=== PATIENT | male | born 1945 | race Caucasian/White ===

== ENCOUNTER → 2017-04-18 | Outpatient (CLI) | payer MEDICARE, MEDICAID ==
[~2017-04-18] MED LIST: AMLO5TAB2 PO; COLC0.6T PO; DIGO0.2570 PO; GABA-497 PO; LINA1TAB PO; LISI40TA PO; METO100T12 PO; SIMV10TA84 PO; TRIA25CA PO; WARF1TAB PO
== END | disposition home or self-care (01) ==
LOC: Rad HDHVI 13:55
PROVIDERS: ATTEND Internal Medicine Cardiovascular Disease
DX: I48.1 Persistent atrial fibrillation (principal); I49.5 Sick sinus syndrome
CPT/HCPCS: 93306

== ENCOUNTER 2017-11-09 05:08 | Emergency (ER) | payer MEDICARE, MEDICAID ==
[~2017-11-09] VITALS: Ht 182.9 cm; Wt 127.0 kg
[~2017-11-09 05:08] MED LIST changes: -GABA-497 PO; +GABA300C10 PO
[2017-11-09 06:37] LABS: Basophils # (auto) 0.1 uL; Basophils % (auto) 1.1 % (0.0-2.0); Eosinophils # (auto) 0.4 uL; Eosinophils % (auto) 6.1 % (0.0-7.0); Hematocrit 39.3 % (41.0-53.0); Hemoglobin 13.1 g/dL (13.5-17.5); Lymphocytes # (auto) 1.5 uL; Lymphocytes % (auto) 25.7 % (10.0-50.0); Mean Corpuscular Hemoglobin 28.1 pg (28.0-32.0); Mean Corpuscular Hgb Conc. 33.4 g/dL (32.0-36.0); Mean Corpuscular Volume 84.2 fL (80.0-100.0); Monocytes # (auto) 0.4 uL; Monocytes % (auto) 7.6 % (0.0-12.0); Neutrophils # (auto) 3.4 uL; Neutrophils % (auto) 59.5 % (37.0-80.0); Nucleated Red Blood Cells % 0.1 %; Platelet Count (auto) 158 10^3/uL (140-450); Red Blood Cells 4.67 10^6/uL (4.5-5.90); Red Cell Distribution Width 15.7 % (11.8-14.3); White Blood Cell 5.7 10^3/uL (4.4-10.8)
[2017-11-09 06:57] LABS: Albumin 3.9 g/dL (3.4-5.0); BUN/Creatinine Ratio 14.5; Calcium 8.6 mg/dL (8.5-10.1); Potassium 3.8 mmol/L (3.5-5.1)
[2017-11-09 07:04] LABS: Bilirubin, Total 0.9 mg/dL (0.2-1.0); Total Protein 7.3 g/dL (6.4-8.2)
[2017-11-09 10:30] VITALS: BP 139/66
== END 2017-11-09 13:21 | disposition home or self-care (01) ==
LOC: ER 05:08
DX: M54.12 Radiculopathy, cervical region (principal); R00.1 Bradycardia, unspecified; E11.9 Type 2 diabetes mellitus without complications; I10 Essential (primary) hypertension; M10.9 Gout, unspecified; E78.5 Hyperlipidemia, unspecified; I48.91 Unspecified atrial fibrillation; Z88.6 Allergy status to analgesic agent; Z88.0 Allergy status to penicillin; Z79.01 Long term (current) use of anticoagulants
CPT/HCPCS: 36415; 70450; 72125; 80053; 80162; 83880; 84484; 85025; 93005

== ENCOUNTER → 2017-12-15 | Outpatient (CLI) | payer MEDICARE, MEDICAID ==
[2017-12-15 11:00] VITALS: BP 166/74
[2017-12-15 11:35] VITALS: BP 156/78
[2017-12-15 12:58] LABS: Basophils # (auto) 0 uL; Basophils % (auto) 0.8 % (0.0-2.0); Eosinophils # (auto) 0.4 uL; Eosinophils % (auto) 7.1 % (0.0-7.0); Hematocrit 38.6 % (41.0-53.0); Hemoglobin 12.7 g/dL (13.5-17.5); Lymphocytes # (auto) 1.1 uL; Lymphocytes % (auto) 19.2 % (10.0-50.0); Mean Corpuscular Hemoglobin 27.6 pg (28.0-32.0); Mean Corpuscular Hgb Conc. 32.9 g/dL (32.0-36.0); Mean Corpuscular Volume 83.9 fL (80.0-100.0); Monocytes # (auto) 0.3 uL; Monocytes % (auto) 5.8 % (0.0-12.0); Neutrophils % (auto) 67.1 % (37.0-80.0); Nucleated Red Blood Cells % 0.1 %; Platelet Count (auto) 149 10^3/uL (140-450); Red Cell Distribution Width 16.3 % (11.8-14.3)
[2017-12-15 13:02] LABS: BUN/Creatinine Ratio 7.4; Calcium 8.8 mg/dL (8.5-10.1)
[2017-12-15 13:09] LABS: INR 1.28 (0.9-1.15); Partial Thromboplastin Time 28.5 sec (22.64-33.71)
== END | disposition home or self-care (01) ==
LOC: Rad HDHVI 10:03
PROVIDERS: ATTEND Internal Medicine Cardiovascular Disease
DX: Z01.818 Encounter for other preprocedural examination (principal); I51.7 Cardiomegaly; D64.9 Anemia, unspecified; R79.1 Abnormal coagulation profile; I10 Essential (primary) hypertension
CPT/HCPCS: 36415; 71046; 80048; 85025; 85610; 85730; 93005; G0463

== ENCOUNTER 2018-01-14 10:27 | Inpatient (IN) | payer MEDICARE, MEDICAID ==
[~2018-01-14] VITALS: Ht 185.4 cm; Wt 127.4 kg
[~2018-01-14 10:27] MED LIST changes: -LINA1TAB PO
[2018-01-14 11:35] LABS: Basophils # (auto) 0 uL; Basophils % (auto) 0.7 % (0.0-2.0); Eosinophils # (auto) 0.2 uL; Eosinophils % (auto) 3.3 % (0.0-7.0); Hematocrit 35.2 % (41.0-53.0); Hemoglobin 11.6 g/dL (13.5-17.5); Lymphocytes # (auto) 0.8 uL; Lymphocytes % (auto) 16.2 % (10.0-50.0); Mean Corpuscular Hemoglobin 27.6 pg (28.0-32.0); Mean Corpuscular Hgb Conc. 32.9 g/dL (32.0-36.0); Mean Corpuscular Volume 83.7 fL (80.0-100.0); Monocytes # (auto) 0.2 uL; Neutrophils # (auto) 3.6 uL; Neutrophils % (auto) 74.8 % (37.0-80.0); Nucleated Red Blood Cells % 0.1 %; Platelet Count (auto) 170 10^3/uL (140-450); Red Blood Cells 4.21 10^6/uL (4.5-5.90); Red Cell Distribution Width 16.5 % (11.8-14.3); White Blood Cell 4.8 10^3/uL (4.4-10.8)
[2018-01-14 11:44] LABS: Albumin 3.9 g/dL (3.4-5.0); Calcium 9.2 mg/dL (8.5-10.1); Magnesium 1.8 mg/dL (1.6-2.6); Potassium 3.8 mmol/L (3.5-5.1)
[2018-01-14 11:51] LABS: Bilirubin, Total 2.1 mg/dL (0.2-1.0); Total Protein 7.5 g/dL (6.4-8.2)
[2018-01-14] MEDS ORDERED: LINA1TAB PO (12:01)
[2018-01-14] MEDS ORDERED: INSU100I2 SC (12:01)
[2018-01-14] MEDS ORDERED: METO-159 PO (12:01)
[2018-01-14] MEDS ORDERED: INSLANTI SC (12:01)
[2018-01-14] MEDS ORDERED: ASPirin 81 mg TAB PO ONE (12:45)
[2018-01-14 13:32] LABS: INR 2.65 (0.9-1.15); Partial Thromboplastin Time 37.6 sec (22.64-33.71); Prothrombin Time 29.2 sec (9.37-12.3)
[2018-01-14] MEDS ORDERED: LORazepam 0.5 MG TAB PO PRN (15:00)
[2018-01-14] MEDS ORDERED: PROMETHAZINE HCL 25 MG/ML 1ML IV PRN (15:00)
[2018-01-14] MEDS ORDERED: NITROGLYCERIN 0.4 MG SL TAB SL PRN (15:00)
[2018-01-14] MEDS ORDERED: TEMAZEPAM 15 MG CAP PO PRN (15:00)
[2018-01-14] MEDS ORDERED: DEXTROSE (50%) 50ML SYRG IV PRN (15:00)
[2018-01-14] MEDS ORDERED: MORPHINE SULFATE 8mg/ml INJ SDV IV PRN ×2 (15:00)
[2018-01-14] MEDS ORDERED: LACTULOSE 20Gm/30ML SOLN PO PRN (15:00)
[2018-01-14] MEDS ORDERED: ACETAMINOPHEN 500 MG TAB PO PRN (15:00)
[2018-01-14] MEDS: SODIUM CHLORIDE 0.9% 1,000 ML IV SCH (15:30)
[2018-01-14] MEDS: ACCU-CHEK COMFORT CURVE STRIP VI SCH ×2 (17:03→21:41)
[2018-01-14] MEDS: InsuLIN REG 1unit/0.01ml Soln (100units/ml) SC SCH ×2 (17:06→21:44)
[2018-01-14] MEDS: PRAVASTATIN SODIUM 20 MG TAB PO SCH (21:38)
[2018-01-14] MEDS: METOPROLOL TARTRATE 50 MG TAB PO SCH (21:38)
[2018-01-14] MEDS: COLCHICINE 0.6 MG TAB PO SCH (21:38)
[2018-01-14] MEDS: INSULIN LANTUS (GLARGINE) 1 /0.01ml (100units/ml) SC SCH (21:41)
[2018-01-14 22:05] LABS: Urine Bacteria NONE SEEN /hpf (None Seen); Urine Blood Negative /uL (Negative); Urine Mucus FEW (None Seen); Urine WBC 1 /hpf (0 - 3)
[2018-01-15 01:46] VITALS: BP 149/73
[2018-01-15] MEDS: SODIUM CHLORIDE 0.9% 1,000 ML IV SCH ×2 (04:09→17:29)
[2018-01-15 05:14] VITALS: BP 135/75
[2018-01-15 06:01] LABS: INR 2.84 (0.9-1.15); Prothrombin Time 31.3 sec (9.37-12.3)
[2018-01-15 06:10] LABS: Basophils # (auto) 0.1 uL; Basophils % (auto) 1.2 % (0.0-2.0); Eosinophils # (auto) 0.2 uL; Hematocrit 33.4 % (41.0-53.0); Hemoglobin 11.1 g/dL (13.5-17.5); Lymphocytes # (auto) 0.9 uL; Lymphocytes % (auto) 22.1 % (10.0-50.0); Mean Corpuscular Hemoglobin 28.2 pg (28.0-32.0); Mean Corpuscular Hgb Conc. 33.3 g/dL (32.0-36.0); Mean Corpuscular Volume 84.5 fL (80.0-100.0); Monocytes # (auto) 0.3 uL; Monocytes % (auto) 6.7 % (0.0-12.0); Neutrophils # (auto) 2.8 uL; Nucleated Red Blood Cells % 0.3 %; Platelet Count (auto) 149 10^3/uL (140-450); Red Blood Cells 3.95 10^6/uL (4.5-5.90); Red Cell Distribution Width 16.6 % (11.8-14.3); White Blood Cell 4.2 10^3/uL (4.4-10.8)
[2018-01-15] MEDS: InsuLIN REG 1unit/0.01ml Soln (100units/ml) SC SCH ×4 (06:16→21:59)
[2018-01-15] MEDS: ACCU-CHEK COMFORT CURVE STRIP VI SCH ×4 (06:16→21:59)
[2018-01-15 06:33] LABS: Cholesterol 101 mg/dL (< 200); HDL Cholesterol 20 mg/dL (40-59); LDL Cholesterol 69 mg/dL (< 100); Triglycerides 194 mg/dL (< 150)
[2018-01-15 08:53] VITALS: BP 162/97
[2018-01-15] MEDS: COLCHICINE 0.6 MG TAB PO SCH ×2 (10:08→21:58)
[2018-01-15] MEDS: TRIAMTERENE/HCTZ 37.5/25 MG CAP PO SCH (10:09)
[2018-01-15] MEDS: METOPROLOL TARTRATE 50 MG TAB PO SCH ×2 (10:09→21:58)
[2018-01-15] MEDS: NITROGLYCERIN 0.2MG/HR TOPICAL PATCH TD SCH (10:09)
[2018-01-15] MEDS: LISINOPRIL 20 MG TAB PO SCH ×2 (10:10→21:58)
[2018-01-15] MEDS: amLODIPine BESYLATE 5 MG TAB PO SCH (10:10)
[2018-01-15] MEDS: ASPirin 81 mg TAB PO SCH (10:11)
[2018-01-15] MEDS: PANTOPRAZOLE 40 MG TAB PO SCH (10:11)
[2018-01-15] MEDS: DIGOXIN 0.25 MG TAB PO SCH (10:11)
[2018-01-15] MEDS: INSULIN LANTUS (GLARGINE) 1 /0.01ml (100units/ml) SC SCH ×2 (11:35→21:59)
[2018-01-15 12:39] VITALS: BP 141/88
[2018-01-15 16:57] VITALS: BP 162/86
[2018-01-15] MEDS ORDERED: WARFARIN SODIUM 2 MG TAB PO ONE (17:00)
[2018-01-15] MEDS: PRAVASTATIN SODIUM 20 MG TAB PO SCH (21:58)
[2018-01-15 22:00] VITALS: BP 170/78
[2018-01-16 05:00] VITALS: BP 160/86
[2018-01-16 06:07] LABS: INR 2.14 (0.9-1.15); Partial Thromboplastin Time 34.9 sec (22.64-33.71); Prothrombin Time 23.5 sec (9.37-12.3)
[2018-01-16] MEDS: InsuLIN REG 1unit/0.01ml Soln (100units/ml) SC SCH ×4 (06:30→22:20)
[2018-01-16] MEDS: SODIUM CHLORIDE 0.9% 1,000 ML IV SCH ×2 (06:30→22:17)
[2018-01-16] MEDS: ACCU-CHEK COMFORT CURVE STRIP VI SCH ×4 (06:30→22:21)
[2018-01-16] MEDS: METOPROLOL TARTRATE 50 MG TAB PO SCH ×2 (07:55→22:19)
[2018-01-16] MEDS: amLODIPine BESYLATE 5 MG TAB PO SCH (07:56)
[2018-01-16] MEDS: LISINOPRIL 20 MG TAB PO SCH ×2 (07:56→22:20)
[2018-01-16 08:00] VITALS: BP 160/86
[2018-01-16] MEDS ORDERED: IODIXANOL 320MG/ML 100ML BTL IV ONE (08:46)
[2018-01-16] MEDS ORDERED: LIDOCAINE 2%HCL (LOCAL ANESTH.) INJ 20ML MDV ONE (08:47)
[2018-01-16] MEDS ORDERED: fentaNYL CITRATE 100 MCG/2 ML VL ONE (09:24)
[2018-01-16] MEDS ORDERED: ANGIOMAX 250 MG VIAL IV ONE (09:24)
[2018-01-16] MEDS ORDERED: SODIUM CHL 0.9% 50 ML ONE (09:25)
[2018-01-16] MEDS ORDERED: MIDAZOLAM HCL 1MG/1ML-2 ML VIAL ONE (09:25)
[2018-01-16] MEDS ORDERED: TICAGRELOR 90 MG TAB ONE (09:53)
[2018-01-16] MEDS: DIGOXIN 0.25 MG TAB PO SCH (11:11)
[2018-01-16] MEDS: TRIAMTERENE/HCTZ 37.5/25 MG CAP PO SCH (11:12)
[2018-01-16] MEDS: NITROGLYCERIN 0.2MG/HR TOPICAL PATCH TD SCH (11:12)
[2018-01-16] MEDS: ASPirin 81 mg TAB PO SCH (11:13)
[2018-01-16] MEDS: PANTOPRAZOLE 40 MG TAB PO SCH (11:13)
[2018-01-16] MEDS: COLCHICINE 0.6 MG TAB PO SCH ×2 (11:13→22:18)
[2018-01-16] MEDS: INSULIN LANTUS (GLARGINE) 1 /0.01ml (100units/ml) SC SCH ×2 (11:14→22:21)
[2018-01-16] MEDS: SODIUM CHLOR 0.9% PF (SALINE LOCK) 10ML VIAL/SYR IV SCH ×2 (12:33→22:17)
[2018-01-16 13:19] VITALS: BP 142/71
[2018-01-16] MEDS: HYDROcodone-ACET 5/325MG TAB PO PRN ×2 (16:14→22:21)
[2018-01-16 17:00] VITALS: BP 151/82
[2018-01-16] MEDS ORDERED: WARFARIN SODIUM 2 MG TAB PO ONE (17:00)
[2018-01-16 20:00] VITALS: BP_DIAS 76
[2018-01-16] MEDS: PRAVASTATIN SODIUM 20 MG TAB PO SCH (22:19)
[2018-01-17] MEDS: HYDROcodone-ACET 5/325MG TAB PO PRN (04:26)
[2018-01-17 05:56] VITALS: BP 140/86
[2018-01-17] MEDS: InsuLIN REG 1unit/0.01ml Soln (100units/ml) SC SCH ×2 (06:11→11:31)
[2018-01-17] MEDS: SODIUM CHLOR 0.9% PF (SALINE LOCK) 10ML VIAL/SYR IV SCH ×2 (06:11→11:31)
[2018-01-17] MEDS: ACCU-CHEK COMFORT CURVE STRIP VI SCH ×2 (06:12→11:30)
[2018-01-17 07:07] LABS: INR 2.02 (0.9-1.15); Partial Thromboplastin Time 33.8 sec (22.64-33.71); Prothrombin Time 22.2 sec (9.37-12.3)
[2018-01-17 07:39] VITALS: BP 144/84
[2018-01-17 08:55] VITALS: BP 144/84
[2018-01-17] MEDS: LISINOPRIL 20 MG TAB PO SCH (09:24)
[2018-01-17] MEDS: COLCHICINE 0.6 MG TAB PO SCH (09:24)
[2018-01-17] MEDS: PANTOPRAZOLE 40 MG TAB PO SCH (09:25)
[2018-01-17] MEDS: METOPROLOL TARTRATE 50 MG TAB PO SCH (09:25)
[2018-01-17] MEDS: ASPirin 81 mg TAB PO SCH (09:25)
[2018-01-17] MEDS: TRIAMTERENE/HCTZ 37.5/25 MG CAP PO SCH (09:25)
[2018-01-17] MEDS: DIGOXIN 0.25 MG TAB PO SCH (09:26)
[2018-01-17] MEDS: amLODIPine BESYLATE 5 MG TAB PO SCH (09:26)
[2018-01-17] MEDS: NITROGLYCERIN 0.2MG/HR TOPICAL PATCH TD SCH (09:27)
[2018-01-17] MEDS: INSULIN LANTUS (GLARGINE) 1 /0.01ml (100units/ml) SC SCH (09:27)
[2018-01-17] MEDS ORDERED: TICAGRELOR 60 MG TAB PO SCH (10:00)
[2018-01-17 13:00] VITALS: BP 144/77
[2018-01-17 13:04] VITALS: BP 144/77
[2018-01-17] MEDS ORDERED: WARFARIN SODIUM 5 MG TAB PO ONE (17:00)
[2018-01-17] MEDS ORDERED: WARFARIN SODIUM 2 MG TAB PO ONE (17:00)
== END 2018-01-17 13:58 | disposition home or self-care (01) | DRG 247 ==
LOC: ER 10:27 → OVERFLOW 10:28 → TELE-WESTW 23:52
PROVIDERS: ADMIT Internal Medicine; ATTEND Family Medicine
PROC: 4A023N7 Measurement of Cardiac Sampling and Pressure, Left Heart, Percutaneous Approach (ICD-10-PCS; principal; 2018-01-16)
PROC: 027034Z Dilation of Coronary Artery, One Artery with Drug-eluting Intraluminal Device, Percutaneous Approach (ICD-10-PCS; 2018-01-16)
PROC: B2111ZZ Fluoroscopy of Multiple Coronary Arteries using Low Osmolar Contrast (ICD-10-PCS; 2018-01-16)
PROC: B2151ZZ Fluoroscopy of Left Heart using Low Osmolar Contrast (ICD-10-PCS; 2018-01-16)
DX: I25.119 Atherosclerotic heart disease of native coronary artery with unspecified angina pectoris (principal); D68.59 Other primary thrombophilia; I11.0 Hypertensive heart disease with heart failure; I48.2 Chronic atrial fibrillation; E66.01 Morbid (severe) obesity due to excess calories; I50.9 Heart failure, unspecified; D64.9 Anemia, unspecified; E11.9 Type 2 diabetes mellitus without complications; E78.00 Pure hypercholesterolemia, unspecified; M10.9 Gout, unspecified; E78.5 Hyperlipidemia, unspecified; Z68.37 Body mass index [BMI] 37.0-37.9, adult; Z82.49 Family history of ischemic heart disease and other diseases of the circulatory system; Z95.0 Presence of cardiac pacemaker; Z95.5 Presence of coronary angioplasty implant and graft; Z88.0 Allergy status to penicillin
CPT/HCPCS: 36415; 71046; 80053; 80061; 81001; 82962; 83036; 83735; 83880; 84443; 84484; 85025; 85610; 85730; 86141; 86850; 86900; 86901; 93005; 94761; 96372; 99152; C1874; J1815; J2250; J2270; Q9967

== ENCOUNTER → 2018-01-26 | Outpatient (CLI) | payer MEDICARE, MEDICAID ==
[~2018-01-26] MED LIST changes: +CLOP75TA28 PO; -GABA300C10 PO; +INSLANTI SC; +INSU100I2 SC; +LINA1TAB PO; +METO-159 PO; -METO100T12 PO
== END | disposition home or self-care (01) ==
LOC: Rad HDHVI 10:24
PROVIDERS: ATTEND Internal Medicine Cardiovascular Disease
DX: I67.2 Cerebral atherosclerosis (principal); I67.82 Cerebral ischemia
CPT/HCPCS: 70450

== ENCOUNTER 2018-02-05 14:46 | Inpatient (IN) | payer MEDICARE, MEDICAID ==
[~2018-02-05] VITALS: Ht 182.9 cm; Wt 122.2 kg
[~2018-02-05 14:46] MED LIST changes: -CLOP75TA28 PO
[2018-02-05 15:43] LABS: Basophils # (auto) 0.1 uL; Basophils % (auto) 0.8 % (0.0-2.0); Eosinophils # (auto) 0.3 uL; Eosinophils % (auto) 2.9 % (0.0-7.0); Hematocrit 36.1 % (41.0-53.0); Hemoglobin 11.9 g/dL (13.5-17.5); Lymphocytes # (auto) 0.9 uL; Lymphocytes % (auto) 10.1 % (10.0-50.0); Mean Corpuscular Hemoglobin 27.6 pg (28.0-32.0); Mean Corpuscular Hgb Conc. 32.9 g/dL (32.0-36.0); Monocytes # (auto) 0.4 uL; Monocytes % (auto) 4.8 % (0.0-12.0); Neutrophils # (auto) 7.5 uL; Neutrophils % (auto) 81.4 % (37.0-80.0); Nucleated Red Blood Cells % 0.2 %; Platelet Count (auto) 213 10^3/uL (140-450); Red Blood Cells 4.29 10^6/uL (4.5-5.90); Red Cell Distribution Width 16.6 % (11.8-14.3); White Blood Cell 9.2 10^3/uL (4.4-10.8)
[2018-02-05 15:49] LABS: Albumin 3.8 g/dL (3.4-5.0); BUN/Creatinine Ratio 12.3; Calcium 9.1 mg/dL (8.5-10.1); Magnesium 1.7 mg/dL (1.6-2.6); Potassium 3.9 mmol/L (3.5-5.1)
[2018-02-05 15:50] LABS: INR 2.98 (0.9-1.15); Partial Thromboplastin Time 37.6 sec (22.64-33.71); Prothrombin Time 32.8 sec (9.37-12.3)
[2018-02-05 15:52] LABS: Bilirubin, Total 2.9 mg/dL (0.2-1.0)
[2018-02-05] MEDS ORDERED: LORazepam 2MG/ML-1ML VIAL IV ONE (16:30)
[2018-02-05] MEDS ORDERED: IOHEXOL 350 MG/ML 100ML IJ ONE (16:31)
[2018-02-05] MEDS ORDERED: ALBUTEROL SULF 2.5 MG/0.5ML(0.5%) NEB SOLN NEB PRN (18:00)
[2018-02-05] MEDS ORDERED: PROMETHAZINE HCL 25 MG/ML 1ML IV PRN (18:00)
[2018-02-05] MEDS ORDERED: TEMAZEPAM 15 MG CAP PO PRN (18:00)
[2018-02-05] MEDS ORDERED: MORPHINE SULFATE 4 MG/ML SYR/VIAL IV PRN ×2 (18:00)
[2018-02-05] MEDS ORDERED: NITROGLYCERIN 0.4 MG SL TAB SL PRN (18:00)
[2018-02-05] MEDS ORDERED: HYDROcodone-ACET 5/325MG TAB PO PRN (18:00)
[2018-02-05] MEDS ORDERED: DEXTROSE (50%) 50ML SYRG IV PRN (18:00)
[2018-02-05] MEDS ORDERED: LORazepam 0.5 MG TAB PO PRN (18:00)
[2018-02-05] MEDS ORDERED: ACETAMINOPHEN 500 MG TAB PO PRN (18:00)
[2018-02-05] MEDS ORDERED: FUROSEMIDE 40 MG/4 ML VIAL IV ONE (18:15)
[2018-02-05] MEDS ORDERED: LEVOFLOXACIN 500MG 100 ML IV ONE (18:15)
[2018-02-05] MEDS: FUROSEMIDE 40 MG/4 ML VIAL IV SCH (20:00)
[2018-02-05 20:01] VITALS: BP 163/80
[2018-02-05] MEDS ORDERED: DIGOXIN 0.25 MG TAB PO ONE (20:30)
[2018-02-05 20:50] VITALS: BP 156/77
[2018-02-05] MEDS ORDERED: MORPHINE SULFATE 8mg/ml INJ SDV IV PRN ×2 (21:00)
[2018-02-05] MEDS: POTASSIUM CHL 20 Meq TABLET PO SCH (21:33)
[2018-02-05] MEDS: COLCHICINE 0.6 MG TAB PO SCH (21:33)
[2018-02-05] MEDS: LISINOPRIL 20 MG TAB PO SCH (21:34)
[2018-02-05] MEDS: METOPROLOL TARTRATE 50 MG TAB PO SCH (21:35)
[2018-02-05] MEDS: SODIUM CHLOR 0.9% PF (SALINE LOCK) 10ML VIAL/SYR IV SCH (21:36)
[2018-02-05] MEDS: ATORVASTATIN 20 MG TAB PO SCH (21:36)
[2018-02-05] MEDS: ACCU-CHEK COMFORT CURVE STRIP VI SCH (21:39)
[2018-02-05] MEDS: InsuLIN REG 1unit/0.01ml Soln (100units/ml) SC SCH (21:43)
[2018-02-05] MEDS: INSULIN LANTUS (GLARGINE) 1 /0.01ml (100units/ml) SC SCH (21:43)
[2018-02-05 22:00] VITALS: BP 156/77
[2018-02-05] MEDS ORDERED: CLOP75TA28 PO (22:53)
[2018-02-06 04:11] VITALS: BP 134/70
[2018-02-06] MEDS: SODIUM CHLOR 0.9% PF (SALINE LOCK) 10ML VIAL/SYR IV SCH ×3 (05:58→21:32)
[2018-02-06] MEDS: FUROSEMIDE 40 MG/4 ML VIAL IV SCH ×2 (06:06→17:57)
[2018-02-06] MEDS: InsuLIN REG 1unit/0.01ml Soln (100units/ml) SC SCH ×4 (06:21→21:43)
[2018-02-06] MEDS: ACCU-CHEK COMFORT CURVE STRIP VI SCH ×4 (06:21→21:34)
[2018-02-06 06:47] LABS: Basophils # (auto) 0.1 uL; Basophils % (auto) 1.1 % (0.0-2.0); Eosinophils # (auto) 0.2 uL; Eosinophils % (auto) 3.9 % (0.0-7.0); Hematocrit 30.3 % (41.0-53.0); Lymphocytes # (auto) 1.1 uL; Lymphocytes % (auto) 21.1 % (10.0-50.0); Mean Corpuscular Hemoglobin 27.7 pg (28.0-32.0); Mean Corpuscular Hgb Conc. 33.2 g/dL (32.0-36.0); Mean Corpuscular Volume 83.5 fL (80.0-100.0); Monocytes # (auto) 0.4 uL; Monocytes % (auto) 6.6 % (0.0-12.0); Neutrophils # (auto) 3.6 uL; Neutrophils % (auto) 67.3 % (37.0-80.0); Platelet Count (auto) 155 10^3/uL (140-450); Red Blood Cells 3.62 10^6/uL (4.5-5.90); White Blood Cell 5.4 10^3/uL (4.4-10.8)
[2018-02-06 06:58] LABS: INR 2.8 (0.9-1.15); Partial Thromboplastin Time 40.8 sec (22.64-33.71); Prothrombin Time 30.8 sec (9.37-12.3)
[2018-02-06 07:01] LABS: Albumin 3.3 g/dL (3.4-5.0); BUN/Creatinine Ratio 17.6; Calcium 8.9 mg/dL (8.5-10.1); Potassium 3.2 mmol/L (3.5-5.1)
[2018-02-06 07:07] LABS: Bilirubin, Total 3.6 mg/dL (0.2-1.0); Total Protein 6.8 g/dL (6.4-8.2)
[2018-02-06 08:00] VITALS: BP 132/59
[2018-02-06] MEDS ORDERED: TRIAMTER PO SCH (10:00)
[2018-02-06] MEDS ORDERED: WARFARIN SODIUM 1 MG TAB PO SCH (10:00)
[2018-02-06] MEDS ORDERED: HYDROCHLOROTHIAZIDE PO SCH (10:00)
[2018-02-06] MEDS ORDERED: ASPirin 81 mg TAB PO ONE (10:00)
[2018-02-06] MEDS ORDERED: LEVOFLOXACIN 500MG 100 ML IV SCH (10:00)
[2018-02-06] MEDS: ASPirin 81 mg TAB PO SCH (10:40)
[2018-02-06] MEDS: POTASSIUM CHL 20 Meq TABLET PO SCH ×2 (10:41→21:33)
[2018-02-06] MEDS: DIGOXIN 0.25 MG TAB PO SCH (10:41)
[2018-02-06] MEDS: PANTOPRAZOLE 40 MG TAB PO SCH (10:42)
[2018-02-06] MEDS: amLODIPine BESYLATE 5 MG TAB PO SCH (10:42)
[2018-02-06] MEDS: CLOPIDOGREL BISULFATE 75 MG TAB PO SCH (10:43)
[2018-02-06] MEDS: METOPROLOL TARTRATE 50 MG TAB PO SCH ×2 (10:43→21:34)
[2018-02-06] MEDS: COLCHICINE 0.6 MG TAB PO SCH ×2 (10:44→21:33)
[2018-02-06] MEDS: LISINOPRIL 20 MG TAB PO SCH ×2 (10:44→21:34)
[2018-02-06] MEDS: INSULIN LANTUS (GLARGINE) 1 /0.01ml (100units/ml) SC SCH ×2 (10:46→21:42)
[2018-02-06 12:00] VITALS: BP 134/78
[2018-02-06 17:00] VITALS: BP 139/76
[2018-02-06] MEDS ORDERED: WARFARIN SODIUM 1 MG TAB PO ONE (17:00)
[2018-02-06] MEDS: ATORVASTATIN 20 MG TAB PO SCH (21:33)
[2018-02-06 22:00] VITALS: BP 150/76
[2018-02-07 05:00] VITALS: BP 144/78
[2018-02-07] MEDS: ACCU-CHEK COMFORT CURVE STRIP VI SCH ×2 (06:31→12:28)
[2018-02-07] MEDS: SODIUM CHLOR 0.9% PF (SALINE LOCK) 10ML VIAL/SYR IV SCH ×2 (06:31→14:00)
[2018-02-07] MEDS: FUROSEMIDE 40 MG/4 ML VIAL IV SCH (06:37)
[2018-02-07] MEDS: InsuLIN REG 1unit/0.01ml Soln (100units/ml) SC SCH ×2 (06:47→12:28)
[2018-02-07 07:15] LABS: INR 2.45 (0.9-1.15); Partial Thromboplastin Time 38.4 sec (22.64-33.71)
[2018-02-07 09:00] VITALS: BP 149/87
[2018-02-07] MEDS: ASPirin 81 mg TAB PO SCH (09:53)
[2018-02-07] MEDS: DIGOXIN 0.25 MG TAB PO SCH (09:54)
[2018-02-07] MEDS: COLCHICINE 0.6 MG TAB PO SCH (09:54)
[2018-02-07] MEDS: POTASSIUM CHL 20 Meq TABLET PO SCH (09:54)
[2018-02-07] MEDS: PANTOPRAZOLE 40 MG TAB PO SCH (09:55)
[2018-02-07] MEDS: METOPROLOL TARTRATE 50 MG TAB PO SCH (09:55)
[2018-02-07] MEDS: CLOPIDOGREL BISULFATE 75 MG TAB PO SCH (09:55)
[2018-02-07] MEDS: amLODIPine BESYLATE 5 MG TAB PO SCH (09:55)
[2018-02-07] MEDS: LISINOPRIL 20 MG TAB PO SCH (09:56)
[2018-02-07] MEDS: INSULIN LANTUS (GLARGINE) 1 /0.01ml (100units/ml) SC SCH (09:57)
[2018-02-07 12:57] VITALS: BP 137/86
[2018-02-07 14:51] VITALS: BP 137/86
[2018-02-07] MEDS ORDERED: WARFARIN SODIUM 2 MG TAB PO ONE (17:00)
== END 2018-02-07 16:00 | disposition home or self-care (01) | DRG 291 ==
LOC: ER 14:46 → EDBD 14:46 → TELE 14:47 → TELE-CENTR 20:48
PROVIDERS: ADMIT Internal Medicine; ATTEND Internal Medicine Pulmonary Disease
DX: I11.0 Hypertensive heart disease with heart failure (principal); J96.01 Acute respiratory failure with hypoxia; I48.91 Unspecified atrial fibrillation; D64.9 Anemia, unspecified; E11.9 Type 2 diabetes mellitus without complications; E66.9 Obesity, unspecified; I50.43 Acute on chronic combined systolic (congestive) and diastolic (congestive) heart failure; E78.5 Hyperlipidemia, unspecified; E87.6 Hypokalemia; I25.10 Atherosclerotic heart disease of native coronary artery without angina pectoris; K21.9 Gastro-esophageal reflux disease without esophagitis; Z82.49 Family history of ischemic heart disease and other diseases of the circulatory system; Z95.0 Presence of cardiac pacemaker; Z95.5 Presence of coronary angioplasty implant and graft; M10.9 Gout, unspecified; M19.90 Unspecified osteoarthritis, unspecified site; Z79.899 Other long term (current) drug therapy; Z79.01 Long term (current) use of anticoagulants; Z88.0 Allergy status to penicillin; Z68.35 Body mass index [BMI] 35.0-35.9, adult
CPT/HCPCS: 36415; 36600; 71045; 71275; 80053; 82550; 82805; 82962; 83036; 83735; 83880; 84443; 84484; 85025; 85379; 85610; 85652; 85730; 86141; 87081; 93005; 93971; 96365; 96375; J1815; J1956

== ENCOUNTER → 2018-02-10 | Outpatient (CLI) | payer MEDICARE, MEDICAID ==
[~2018-02-10] VITALS: Ht 182.9 cm; Wt 127.0 kg
[~2018-02-10] MED LIST changes: +ADENOSINE 107 MG in GIVE UN-DILUTED 0 ML IV ONE; +ADENOSINE 90 MG/30 ML INJ IV ONE; +CLOP75TA28 PO; +CYANOCOBALAMIN (B-12) 1000 MCG/1 ML VIAL IM ONE; +CYANOCOBALAMIN (B-12) 1000 MCG/1 ML VIAL ONE; +DOXA2TAB PO; +HYDR25TA35 PO; +LORA2TAB89 PO; +SACU1TAB PO
[2018-02-10 09:40] VITALS: BP 142/80
[2018-02-10 12:22] LABS: Basophils # (auto) 0.1 uL; Eosinophils # (auto) 0.2 uL; Eosinophils % (auto) 4.7 % (0.0-7.0); Hematocrit 32.9 % (41.0-53.0); Hemoglobin 10.7 g/dL (13.5-17.5); Lymphocytes % (auto) 20.2 % (10.0-50.0); Mean Corpuscular Hemoglobin 27.2 pg (28.0-32.0); Mean Corpuscular Hgb Conc. 32.4 g/dL (32.0-36.0); Mean Corpuscular Volume 84.1 fL (80.0-100.0); Monocytes # (auto) 0.3 uL; Monocytes % (auto) 6.4 % (0.0-12.0); Neutrophils # (auto) 3.1 uL; Neutrophils % (auto) 66.7 % (37.0-80.0); Nucleated Red Blood Cells % 0.1 %; Platelet Count (auto) 182 10^3/uL (140-450); Red Blood Cells 3.92 10^6/uL (4.5-5.90); Red Cell Distribution Width 16.8 % (11.8-14.3); White Blood Cell 4.7 10^3/uL (4.4-10.8)
[2018-02-10 13:00] LABS: BUN/Creatinine Ratio 18.6; Calcium 9.1 mg/dL (8.5-10.1); Magnesium 2.2 mg/dL (1.6-2.6); Potassium 3.8 mmol/L (3.5-5.1)
== END | disposition home or self-care (01) ==
LOC: Rad HDHVI 08:05
PROVIDERS: ATTEND Internal Medicine Cardiovascular Disease
DX: I48.91 Unspecified atrial fibrillation (principal); I11.0 Hypertensive heart disease with heart failure; I50.43 Acute on chronic combined systolic (congestive) and diastolic (congestive) heart failure; R42 Dizziness and giddiness; E11.9 Type 2 diabetes mellitus without complications; I25.10 Atherosclerotic heart disease of native coronary artery without angina pectoris; E55.9 Vitamin D deficiency, unspecified; I25.2 Old myocardial infarction; E87.70 Fluid overload, unspecified; E78.00 Pure hypercholesterolemia, unspecified; R53.83 Other fatigue; R70.0 Elevated erythrocyte sedimentation rate; K21.9 Gastro-esophageal reflux disease without esophagitis; Z95.5 Presence of coronary angioplasty implant and graft; E66.01 Morbid (severe) obesity due to excess calories; Z88.9 Allergy status to unspecified drugs, medicaments and biological substances; E78.5 Hyperlipidemia, unspecified; Z79.899 Other long term (current) drug therapy; Z79.01 Long term (current) use of anticoagulants; Z79.82 Long term (current) use of aspirin; Z79.4 Long term (current) use of insulin; Z68.35 Body mass index [BMI] 35.0-35.9, adult
CPT/HCPCS: 36415; 78452; 80048; 80162; 82306; 83735; 85025; 85610; 85652; 93005; 96372; 96374; 96375; A9500; G0463; J0153; J3420

== ENCOUNTER → 2018-02-18 | Outpatient (CLI) | payer MEDICARE, MEDICAID ==
[~2018-02-18] MED LIST changes: -ADENOSINE 107 MG in GIVE UN-DILUTED 0 ML IV ONE; -ADENOSINE 90 MG/30 ML INJ IV ONE; -CYANOCOBALAMIN (B-12) 1000 MCG/1 ML VIAL IM ONE; -CYANOCOBALAMIN (B-12) 1000 MCG/1 ML VIAL ONE; -DOXA2TAB PO; -HYDR25TA35 PO; +IOHEXOL 350 MG/ML 100ML IJ ONE; -LORA2TAB89 PO; -SACU1TAB PO; +SODIUM CHLORIDE 0.9% 250 ML IV ONE
[2018-02-18 13:20] VITALS: BP 152/78
[2018-02-18 15:15] VITALS: BP 123/69
[2018-02-18 16:20] LABS: Basophils # (auto) 0.1 uL; Basophils % (auto) 1.4 % (0.0-2.0); Eosinophils # (auto) 0.2 uL; Eosinophils % (auto) 4.5 % (0.0-7.0); Hematocrit 34.6 % (41.0-53.0); Hemoglobin 11.3 g/dL (13.5-17.5); Mean Corpuscular Hemoglobin 27.4 pg (28.0-32.0); Mean Corpuscular Hgb Conc. 32.6 g/dL (32.0-36.0); Mean Corpuscular Volume 83.9 fL (80.0-100.0); Monocytes # (auto) 0.4 uL; Monocytes % (auto) 7.1 % (0.0-12.0); Neutrophils # (auto) 3.4 uL; Nucleated Red Blood Cells % 0.1 %; Platelet Count (auto) 186 10^3/uL (140-450); Red Blood Cells 4.12 10^6/uL (4.5-5.90); Red Cell Distribution Width 17.3 % (11.8-14.3)
[2018-02-18 16:24] LABS: BUN/Creatinine Ratio 13.9; Potassium 3.9 mmol/L (3.5-5.1)
[2018-02-18 16:25] LABS: Albumin 3.9 g/dL (3.4-5.0); Bilirubin, Direct 0.5 mg/dL (0-0.2); Bilirubin, Total 2.4 mg/dL (0.2-1.0); CRP High Sensitivity 4.85 mg/dL (< 0.3); Calcium 9.6 mg/dL (8.5-10.1); Total Protein 7.8 g/dL (6.4-8.2)
[2018-02-18 16:54] LABS: INR 3.44 (0.9-1.15); Partial Thromboplastin Time 41.8 sec (23.78-33.04); Prothrombin Time 34.3 sec (9.27-12.13)
== END | disposition home or self-care (01) ==
LOC: Rad HDHVI 13:07
PROVIDERS: ATTEND Internal Medicine Cardiovascular Disease
DX: K76.0 Fatty (change of) liver, not elsewhere classified (principal); I48.91 Unspecified atrial fibrillation; R79.1 Abnormal coagulation profile; I11.0 Hypertensive heart disease with heart failure; E11.9 Type 2 diabetes mellitus without complications; R79.82 Elevated C-reactive protein (CRP); R17 Unspecified jaundice; K80.80 Other cholelithiasis without obstruction; R16.1 Splenomegaly, not elsewhere classified; I25.10 Atherosclerotic heart disease of native coronary artery without angina pectoris; E78.5 Hyperlipidemia, unspecified; I50.43 Acute on chronic combined systolic (congestive) and diastolic (congestive) heart failure; E78.00 Pure hypercholesterolemia, unspecified; Z79.01 Long term (current) use of anticoagulants; Z95.1 Presence of aortocoronary bypass graft; Z68.35 Body mass index [BMI] 35.0-35.9, adult; Z79.4 Long term (current) use of insulin; Z79.899 Other long term (current) drug therapy
CPT/HCPCS: 36415; 74177; 80048; 80076; 80162; 82565; 83036; 85025; 85610; 85730; 86141; 96361; G0463

== ENCOUNTER → 2018-02-20 | Outpatient (CLI) | payer MEDICARE, MEDICAID ==
[~2018-02-20] MED LIST changes: -IOHEXOL 350 MG/ML 100ML IJ ONE; -SODIUM CHLORIDE 0.9% 250 ML IV ONE
[2018-02-20 11:00] VITALS: BP 107/68
[2018-02-20 12:30] VITALS: BP 144/70
[2018-02-22 04:59] VITALS: BP 128/73
== END | disposition home or self-care (01) ==
LOC: CHF HDHVI 10:51
PROVIDERS: ATTEND Internal Medicine Cardiovascular Disease
DX: R42 Dizziness and giddiness (principal); R53.1 Weakness; R53.83 Other fatigue; I11.0 Hypertensive heart disease with heart failure; I50.9 Heart failure, unspecified; E11.9 Type 2 diabetes mellitus without complications; E78.5 Hyperlipidemia, unspecified; E78.00 Pure hypercholesterolemia, unspecified; K21.9 Gastro-esophageal reflux disease without esophagitis; Z79.899 Other long term (current) drug therapy
CPT/HCPCS: 82962; 85610; G0463

== ENCOUNTER 2018-02-21 17:31 | Inpatient (IN) | payer MEDICARE, MEDICAID ==
[~2018-02-21] VITALS: Ht 177.8 cm; Wt 90.7 kg
[2018-02-21 18:57] LABS: Basophils # (auto) 0.1 uL; Basophils % (auto) 0.7 % (0.0-2.0); Eosinophils # (auto) 0.2 uL; Eosinophils % (auto) 2.3 % (0.0-7.0); Hematocrit 32.7 % (41.0-53.0); Hemoglobin 10.7 g/dL (13.5-17.5); Lymphocytes # (auto) 0.8 uL; Lymphocytes % (auto) 10.5 % (10.0-50.0); Mean Corpuscular Hemoglobin 27.2 pg (28.0-32.0); Mean Corpuscular Hgb Conc. 32.7 g/dL (32.0-36.0); Mean Corpuscular Volume 83.3 fL (80.0-100.0); Monocytes # (auto) 0.3 uL; Monocytes % (auto) 3.7 % (0.0-12.0); Neutrophils # (auto) 6.1 uL; Neutrophils % (auto) 82.8 % (37.0-80.0); Nucleated Red Blood Cells % 0.1 %; Platelet Count (auto) 212 10^3/uL (140-450); Red Blood Cells 3.93 10^6/uL (4.5-5.90); Red Cell Distribution Width 17.6 % (11.8-14.3); White Blood Cell 7.3 10^3/uL (4.4-10.8)
[2018-02-21 19:32] LABS: Albumin 3.7 g/dL (3.4-5.0); BUN/Creatinine Ratio 11.2; Bilirubin, Total 2.5 mg/dL (0.2-1.0); Magnesium 1.9 mg/dL (1.6-2.6); Potassium 3.6 mmol/L (3.5-5.1); Total Protein 7.5 g/dL (6.4-8.2)
[2018-02-21 20:20] LABS: INR 2.62 (0.9-1.15); Partial Thromboplastin Time 38.8 sec (23.78-33.04); Prothrombin Time 26.5 sec (9.27-12.13)
[2018-02-21 22:26] LABS: Urine Bacteria NONE SEEN /hpf (None Seen); Urine Blood Negative /uL (Negative); Urine Mucus FEW (None Seen); Urine Specific Gravity 1.019 (1.001-1.035); Urine WBC 2 /hpf (0 - 3)
[2018-02-22] MEDS ORDERED: HYDROcodone-ACET 5/325MG TAB PO PRN ×2 (03:15→04:30)
[2018-02-22] MEDS ORDERED: ACETAMINOPHEN 500 MG TAB PO PRN (03:15)
[2018-02-22] MEDS ORDERED: LORazepam 0.5 MG TAB PO PRN (03:15)
[2018-02-22] MEDS ORDERED: MORPHINE SULFATE 8mg/ml INJ SDV IV PRN ×2 (03:15→04:30)
[2018-02-22] MEDS ORDERED: ONDANSETRON HCL 4 MG/2 ML VIAL IV PRN (03:15)
[2018-02-22] MEDS ORDERED: NITROGLYCERIN 0.4 MG SL TAB SL PRN (03:15)
[2018-02-22 04:30] LABS: Basophils # (auto) 0 uL; Basophils % (auto) 0.6 % (0.0-2.0); Eosinophils # (auto) 0.1 uL; Eosinophils % (auto) 1.5 % (0.0-7.0); Hematocrit 27.8 % (41.0-53.0); Hemoglobin 9.3 g/dL (13.5-17.5); Lymphocytes % (auto) 16.6 % (10.0-50.0); Mean Corpuscular Hemoglobin 27.8 pg (28.0-32.0); Mean Corpuscular Hgb Conc. 33.4 g/dL (32.0-36.0); Mean Corpuscular Volume 83.3 fL (80.0-100.0); Monocytes # (auto) 0.3 uL; Monocytes % (auto) 5.5 % (0.0-12.0); Neutrophils # (auto) 4.4 uL; Neutrophils % (auto) 75.8 % (37.0-80.0); Nucleated Red Blood Cells % 0.2 %; Platelet Count (auto) 180 10^3/uL (140-450); Red Blood Cells 3.34 10^6/uL (4.5-5.90); Red Cell Distribution Width 17.5 % (11.8-14.3); White Blood Cell 5.8 10^3/uL (4.4-10.8)
[2018-02-22] MEDS ORDERED: FUROSEMIDE 40 MG/4 ML VIAL IV ONE ×3 (04:30→09:45)
[2018-02-22 04:37] LABS: BUN/Creatinine Ratio 12.4; Calcium 8.8 mg/dL (8.5-10.1); Potassium 3.6 mmol/L (3.5-5.1)
[2018-02-22 05:00] VITALS: BP 128/73
[2018-02-22] MEDS: GABAPENTIN 300 MG CAP PO SCH ×3 (05:44→21:58)
[2018-02-22] MEDS ORDERED: GABAPENTIN 300 MG CAP PO SCH (06:00)
[2018-02-22 07:49] LABS: INR 2.21 (0.9-1.15); Prothrombin Time 22.6 sec (9.27-12.13)
[2018-02-22 07:54] VITALS: BP 144/73
[2018-02-22 08:00] VITALS: BP 104/63
[2018-02-22] MEDS ORDERED: ASPirin 81 mg TAB PO SCH (10:00)
[2018-02-22] MEDS ORDERED: amLODIPine BESYLATE 5 MG TAB PO SCH ×2 (10:00)
[2018-02-22] MEDS ORDERED: METOPROLOL TARTRATE 50 MG TAB PO SCH (10:00)
[2018-02-22] MEDS: METOPROLOL TARTRATE 50 MG TAB PO SCH ×2 (10:00→21:56)
[2018-02-22] MEDS ORDERED: DIGOXIN 0.25 MG TAB PO SCH (10:00)
[2018-02-22] MEDS ORDERED: ASPirin 81 mg TAB ONE (10:23)
[2018-02-22] MEDS ORDERED: SODIUM CHL 0.9% 50 ML ONE (10:28)
[2018-02-22] MEDS ORDERED: MIDAZOLAM HCL 1MG/1ML-2 ML VIAL ONE (10:28)
[2018-02-22] MEDS ORDERED: ANGIOMAX 250 MG VIAL IV ONE (10:28)
[2018-02-22] MEDS ORDERED: fentaNYL CITRATE 100 MCG/2 ML VL ONE (10:28)
[2018-02-22] MEDS ORDERED: LIDOCAINE 2%HCL (LOCAL ANESTH.) INJ 20ML MDV ONE (10:28)
[2018-02-22] MEDS ORDERED: IOHEXOL 350 MG/ML 100ML IJ ONE (10:29)
[2018-02-22] MEDS ORDERED: EPTIFIBATIDE INJ (2MG/ML) 10ML VIAL IV ONE (10:29)
[2018-02-22] MEDS ORDERED: ASPirin 81 mg TAB PO ONE (10:30)
[2018-02-22] MEDS ORDERED: DIGOXIN (250MCG/ML) 2 ML AMPULE IV ONE (11:00)
[2018-02-22 13:30] VITALS: BP 127/71
[2018-02-22] MEDS: RAMIPRIL 2.5 MG CAP PO SCH (13:44)
[2018-02-22] MEDS ORDERED: POTASSIUM CHL 20 Meq TABLET PO ONE (13:45)
[2018-02-22] MEDS: SPIRONOLACTONE 25 MG TAB PO SCH (15:29)
[2018-02-22 16:27] VITALS: BP 104/63
[2018-02-22 22:00] VITALS: BP 121/76
[2018-02-23 04:52] VITALS: BP 123/68
[2018-02-23] MEDS: GABAPENTIN 300 MG CAP PO SCH ×3 (06:00→22:00)
[2018-02-23 08:00] VITALS: BP 141/72
[2018-02-23 09:00] VITALS: BP 141/72
[2018-02-23] MEDS ORDERED: DIGOXIN 0.25 MG TAB PO SCH (10:00)
[2018-02-23] MEDS: ASPirin 81 mg TAB PO SCH (10:50)
[2018-02-23] MEDS: SPIRONOLACTONE 25 MG TAB PO SCH (10:50)
[2018-02-23] MEDS: DIGOXIN 0.25 MG TAB PO SCH (10:51)
[2018-02-23] MEDS: RAMIPRIL 2.5 MG CAP PO SCH (10:51)
[2018-02-23 11:43] LABS: Eosinophils # (auto) 0.2 uL; Lymphocytes # (auto) 0.7 uL; Monocytes # (auto) 0.3 uL; Neutrophils % (auto) 79.4 % (37.0-80.0)
[2018-02-23 11:44] LABS: Basophils # (auto) 0.1 uL; Basophils % (auto) 0.9 % (0.0-2.0); Eosinophils % (auto) 2.8 % (0.0-7.0); Hematocrit 31.3 % (41.0-53.0); Hemoglobin 9.9 g/dL (13.5-17.5); Lymphocytes % (auto) 12.6 % (10.0-50.0); Mean Corpuscular Hemoglobin 26.9 pg (28.0-32.0); Mean Corpuscular Hgb Conc. 31.5 g/dL (32.0-36.0); Mean Corpuscular Volume 85.5 fL (80.0-100.0); Monocytes % (auto) 4.3 % (0.0-12.0); Neutrophils # (auto) 4.6 uL; Nucleated Red Blood Cells % 0.2 %; Platelet Count (auto) 187 10^3/uL (140-450); Red Blood Cells 3.66 10^6/uL (4.5-5.90); Red Cell Distribution Width 17.9 % (11.8-14.3); White Blood Cell 5.8 10^3/uL (4.4-10.8)
[2018-02-23 11:46] LABS: INR 1.75 (0.9-1.15); Prothrombin Time 18.1 sec (9.27-12.13)
[2018-02-23 11:53] LABS: BUN/Creatinine Ratio 18.3; Calcium 9.2 mg/dL (8.5-10.1)
[2018-02-23 13:00] VITALS: BP 137/72
[2018-02-23] MEDS: COLCHICINE 0.6 MG TAB PO SCH ×2 (13:01→22:33)
[2018-02-23] MEDS: METOPROLOL TARTRATE 50 MG TAB PO SCH ×2 (13:03→22:34)
[2018-02-23 17:00] VITALS: BP 130/65
[2018-02-23] MEDS ORDERED: WARFARIN SODIUM 2.5 MG TAB PO ONE (17:00)
[2018-02-23 22:00] VITALS: BP 140/74
[2018-02-24 05:00] VITALS: BP 135/69
[2018-02-24] MEDS: GABAPENTIN 300 MG CAP PO SCH ×2 (05:37→14:00)
[2018-02-24 06:02] LABS: Basophils # (auto) 0 uL; Basophils % (auto) 0.9 % (0.0-2.0); Eosinophils # (auto) 0.2 uL; Eosinophils % (auto) 4.4 % (0.0-7.0); Hemoglobin 9.1 g/dL (13.5-17.5); Lymphocytes # (auto) 0.9 uL; Mean Corpuscular Hemoglobin 28.1 pg (28.0-32.0); Mean Corpuscular Hgb Conc. 33.5 g/dL (32.0-36.0); Mean Corpuscular Volume 84.1 fL (80.0-100.0); Monocytes # (auto) 0.3 uL; Monocytes % (auto) 5.4 % (0.0-12.0); Neutrophils # (auto) 3.6 uL; Neutrophils % (auto) 71.3 % (37.0-80.0); Nucleated Red Blood Cells % 0.1 %; Platelet Count (auto) 168 10^3/uL (140-450); Red Blood Cells 3.22 10^6/uL (4.5-5.90); Red Cell Distribution Width 17.3 % (11.8-14.3); White Blood Cell 5.1 10^3/uL (4.4-10.8)
[2018-02-24 06:10] LABS: INR 1.59 (0.9-1.15); Partial Thromboplastin Time 32.2 sec (23.78-33.04); Prothrombin Time 16.6 sec (9.27-12.13)
[2018-02-24 06:19] LABS: Potassium 3.9 mmol/L (3.5-5.1)
[2018-02-24 06:31] LABS: BUN/Creatinine Ratio 21.8; Calcium 8.9 mg/dL (8.5-10.1)
[2018-02-24 08:00] VITALS: BP 136/77
[2018-02-24 08:16] VITALS: BP 121/78
[2018-02-24] MEDS ORDERED: FUROSEMIDE 40 MG TAB PO SCH (10:00)
[2018-02-24] MEDS: COLCHICINE 0.6 MG TAB PO SCH (10:47)
[2018-02-24] MEDS: ASPirin 81 mg TAB PO SCH (10:47)
[2018-02-24] MEDS: DIGOXIN 0.25 MG TAB PO SCH (10:48)
[2018-02-24] MEDS: SPIRONOLACTONE 25 MG TAB PO SCH (10:49)
[2018-02-24] MEDS: METOPROLOL TARTRATE 50 MG TAB PO SCH (10:49)
[2018-02-24] MEDS: RAMIPRIL 2.5 MG CAP PO SCH (10:49)
[2018-02-24 11:59] VITALS: BP 124/61
[2018-02-24 16:08] VITALS: BP 126/64
[2018-02-24] MEDS ORDERED: WARFARIN SODIUM 10 MG TAB PO ONE (18:00)
== END 2018-02-24 17:15 | disposition home health service (06) | DRG 280 ==
LOC: EDBD 17:31 → ER 17:31 → TELE 17:32 → TELE-WESTW 02-22 04:25 → ER 02-22 04:29 → TELE-WESTW 02-22 04:29
PROVIDERS: ADMIT Nurse Practitioner Family; ATTEND Internal Medicine
PROC: 4A023N7 Measurement of Cardiac Sampling and Pressure, Left Heart, Percutaneous Approach (ICD-10-PCS; principal; 2018-02-22)
PROC: B2111ZZ Fluoroscopy of Multiple Coronary Arteries using Low Osmolar Contrast (ICD-10-PCS; 2018-02-22)
PROC: B2151ZZ Fluoroscopy of Left Heart using Low Osmolar Contrast (ICD-10-PCS; 2018-02-22)
DX: I21.3 ST elevation (STEMI) myocardial infarction of unspecified site (principal); I50.23 Acute on chronic systolic (congestive) heart failure; D68.59 Other primary thrombophilia; I48.91 Unspecified atrial fibrillation; D64.9 Anemia, unspecified; I11.0 Hypertensive heart disease with heart failure; E78.5 Hyperlipidemia, unspecified; I25.10 Atherosclerotic heart disease of native coronary artery without angina pectoris; I25.5 Ischemic cardiomyopathy; I44.7 Left bundle-branch block, unspecified; M10.9 Gout, unspecified; M19.90 Unspecified osteoarthritis, unspecified site; Z79.01 Long term (current) use of anticoagulants; Z79.4 Long term (current) use of insulin; Z79.899 Other long term (current) drug therapy; Z82.49 Family history of ischemic heart disease and other diseases of the circulatory system; Z95.0 Presence of cardiac pacemaker; Z95.5 Presence of coronary angioplasty implant and graft; Z88.0 Allergy status to penicillin; Z88.8 Allergy status to other drugs, medicaments and biological substances
CPT/HCPCS: 36415; 36600; 71045; 74177; 80048; 80053; 80076; 80162; 81001; 82565; 82805; 82962; 83036; 83735; 83880; 84484; 85025; 85379; 85610; 85730; 86141; 86850; 86900; 86901; 87081; 93005; 93306; 96361; 99152; G0463; J2250

== ENCOUNTER → 2018-03-11 | Outpatient (CLI) | payer MEDICARE, MEDICAID ==
[~2018-03-11] MED LIST changes: -CLOP75TA28 PO; +DOXA2TAB PO; +HYDR25TA35 PO; +LORA2TAB89 PO; +SACU1TAB PO; -TRIA25CA PO
== END | disposition home or self-care (01) ==
LOC: LAB 14:24
PROVIDERS: ATTEND Internal Medicine Cardiovascular Disease
DX: R79.1 Abnormal coagulation profile (principal); I11.0 Hypertensive heart disease with heart failure; I50.23 Acute on chronic systolic (congestive) heart failure; E11.9 Type 2 diabetes mellitus without complications; E78.5 Hyperlipidemia, unspecified; E78.00 Pure hypercholesterolemia, unspecified; Z79.01 Long term (current) use of anticoagulants; Z79.899 Other long term (current) drug therapy; Z79.82 Long term (current) use of aspirin
CPT/HCPCS: 85610

== ENCOUNTER → 2018-03-23 | Outpatient (CLI) | payer MEDICARE, MEDICAID ==
[~2018-03-23] MED LIST changes: +HYDR-4296 PO; -HYDR25TA35 PO; +HYDR25TA4 PO
[2018-03-23 10:20] VITALS: BP 122/69
[2018-03-23 11:01] VITALS: BP 120/66
[2018-03-23 12:52] LABS: Eosinophils # (auto) 0.2 uL; Hemoglobin 11.6 g/dL (13.5-17.5); Lymphocytes # (auto) 0.8 uL; Monocytes # (auto) 0.3 uL; White Blood Cell 4.4 10^3/uL (4.4-10.8)
[2018-03-23 12:56] LABS: Basophils # (auto) 0.1 uL; Basophils % (auto) 1.4 % (0.0-2.0); Eosinophils % (auto) 5.3 % (0.0-7.0); Hematocrit 35.6 % (41.0-53.0); Lymphocytes % (auto) 17.6 % (10.0-50.0); Mean Corpuscular Hemoglobin 26.8 pg (28.0-32.0); Mean Corpuscular Hgb Conc. 32.7 g/dL (32.0-36.0); Monocytes % (auto) 5.8 % (0.0-12.0); Neutrophils # (auto) 3.1 uL; Neutrophils % (auto) 69.9 % (37.0-80.0); Nucleated Red Blood Cells % 0.4 %; Platelet Count (auto) 177 10^3/uL (140-450); Red Blood Cells 4.34 10^6/uL (4.5-5.90); Red Cell Distribution Width 17.7 % (11.8-14.3)
[2018-03-23 13:04] LABS: BUN/Creatinine Ratio 10.6; Calcium 9.6 mg/dL (8.5-10.1); Potassium 3.9 mmol/L (3.5-5.1)
[2018-03-23 13:05] LABS: INR 1.04 (0.9-1.15); Partial Thromboplastin Time 27.2 sec (23.78-33.04); Prothrombin Time 11.1 sec (9.27-12.13)
== END | disposition home or self-care (01) ==
LOC: Rad HDHVI 10:16
PROVIDERS: ATTEND Internal Medicine Cardiovascular Disease
DX: Z01.812 Encounter for preprocedural laboratory examination (principal); I51.7 Cardiomegaly; I50.43 Acute on chronic combined systolic (congestive) and diastolic (congestive) heart failure; E11.9 Type 2 diabetes mellitus without complications; D64.9 Anemia, unspecified; R79.1 Abnormal coagulation profile; E78.5 Hyperlipidemia, unspecified; Z79.899 Other long term (current) drug therapy; E78.00 Pure hypercholesterolemia, unspecified
CPT/HCPCS: 36415; 71046; 80048; 85025; 85610; 85730; 93005; G0463

== ENCOUNTER → 2018-04-14 | Outpatient (CLI) | payer MEDICARE, MEDICAID ==
[~2018-04-14] VITALS: Ht 30.5 cm; Wt 0.5 kg
[2018-04-14] VITALS (7 sets, daily range): BP systolic 102–147; BP diastolic 46–65
[~2018-04-14] MED LIST changes: +AMLO5TAB13 PO; -AMLO5TAB2 PO; +ASPI-318 PO; -COLC0.6T PO; +COLCPOW2 PO; +CYANOCOBALAMIN (B-12) 1000 MCG/1 ML VIAL IM ONE; +CYANOCOBALAMIN (B-12) 1000 MCG/1 ML VIAL ONE; +DOBUTamine 1000MCG/ML 250 ML IV ONE; +FURO40TA4 PO; -HYDR-4296 PO; +KETOROLAC TROMETH 60MG/2ML VIAL IM ONE; -LISI40TA PO; +SPIR25TA8 PO; +WARF7.5T20 PO
[2018-04-14 12:37] LABS: Basophils # (auto) 0.1 uL; Basophils % (auto) 1.3 % (0.0-2.0); Eosinophils # (auto) 0.2 uL; Eosinophils % (auto) 4.8 % (0.0-7.0); Hematocrit 35.8 % (41.0-53.0); Hemoglobin 11.7 g/dL (13.5-17.5); Lymphocytes # (auto) 0.8 uL; Lymphocytes % (auto) 18.2 % (10.0-50.0); Mean Corpuscular Hemoglobin 26.9 pg (28.0-32.0); Mean Corpuscular Hgb Conc. 32.7 g/dL (32.0-36.0); Mean Corpuscular Volume 82.3 fL (80.0-100.0); Monocytes # (auto) 0.3 uL; Monocytes % (auto) 8.3 % (0.0-12.0); Neutrophils # (auto) 2.8 uL; Neutrophils % (auto) 67.4 % (37.0-80.0); Nucleated Red Blood Cells % 0.1 %; Platelet Count (auto) 174 10^3/uL (140-450); Red Blood Cells 4.35 10^6/uL (4.5-5.90); Red Cell Distribution Width 17.6 % (11.8-14.3); White Blood Cell 4.2 10^3/uL (4.4-10.8)
[2018-04-14 13:16] LABS: Magnesium 1.8 mg/dL (1.6-2.6); Potassium 3.8 mmol/L (3.5-5.1)
== END | disposition home or self-care (01) ==
LOC: CHF HDHVI 09:57
PROVIDERS: ATTEND Internal Medicine Cardiovascular Disease
DX: I20.9 Angina pectoris, unspecified (principal); I42.0 Dilated cardiomyopathy; M54.2 Cervicalgia; R53.83 Other fatigue; E83.40 Disorders of magnesium metabolism, unspecified; E87.6 Hypokalemia; R94.4 Abnormal results of kidney function studies; I13.0 Hypertensive heart and chronic kidney disease with heart failure and stage 1 through stage 4 chronic kidney disease, or unspecified chronic kidney disease; E11.22 Type 2 diabetes mellitus with diabetic chronic kidney disease; N18.3 Chronic kidney disease, stage 3 (moderate); I50.43 Acute on chronic combined systolic (congestive) and diastolic (congestive) heart failure; D63.8 Anemia in other chronic diseases classified elsewhere; I48.2 Chronic atrial fibrillation; I25.2 Old myocardial infarction; K21.9 Gastro-esophageal reflux disease without esophagitis; E78.5 Hyperlipidemia, unspecified; E66.01 Morbid (severe) obesity due to excess calories; Z68.35 Body mass index [BMI] 35.0-35.9, adult; Z79.4 Long term (current) use of insulin; Z79.82 Long term (current) use of aspirin; Z79.01 Long term (current) use of anticoagulants; Z95.810 Presence of automatic (implantable) cardiac defibrillator; Z95.5 Presence of coronary angioplasty implant and graft; Z87.891 Personal history of nicotine dependence
CPT/HCPCS: 36415; 82565; 83735; 83880; 84132; 84520; 85025; 85610; 96365; 96366; 96372; G0463; J1250; J1885; J3420

== ENCOUNTER → 2018-04-21 | Outpatient (CLI) | payer MEDICARE, MEDICAID ==
[2018-04-21] VITALS (9 sets, daily range): BP systolic 86–136; BP diastolic 55–68
[~2018-04-21] MED LIST changes: -AMLO5TAB13 PO; +AMLO5TAB2 PO; -CYANOCOBALAMIN (B-12) 1000 MCG/1 ML VIAL IM ONE; -CYANOCOBALAMIN (B-12) 1000 MCG/1 ML VIAL ONE; -KETOROLAC TROMETH 60MG/2ML VIAL IM ONE; -SPIR25TA8 PO; +SPIR25TA89 PO
[2018-04-21 12:20] LABS: Basophils # (auto) 0 uL; Eosinophils # (auto) 0.1 uL; Hematocrit 31.5 % (41.0-53.0); Hemoglobin 10.3 g/dL (13.5-17.5); Lymphocytes # (auto) 0.5 uL; Monocytes # (auto) 0.2 uL; Neutrophils # (auto) 3.2 uL
[2018-04-21 12:24] LABS: Lymphocytes % (auto) 12.9 % (10.0-50.0); Mean Corpuscular Hgb Conc. 32.8 g/dL (32.0-36.0); Mean Corpuscular Volume 80.1 fL (80.0-100.0); Neutrophils % (auto) 79.1 % (37.0-80.0); Nucleated Red Blood Cells % 0.1 %; Platelet Count (auto) 175 10^3/uL (140-450); Red Blood Cells 3.93 10^6/uL (4.5-5.90); Red Cell Distribution Width 17.7 % (11.8-14.3)
[2018-04-21 12:37] LABS: Mean Corpuscular Hemoglobin 26.4 pg (28.0-32.0)
[2018-04-21 12:50] LABS: BUN/Creatinine Ratio 18.7; Magnesium 2.1 mg/dL (1.6-2.6); Potassium 3.3 mmol/L (3.5-5.1)
== END | disposition home or self-care (01) ==
LOC: CHF HDHVI 10:19
PROVIDERS: ATTEND Internal Medicine Cardiovascular Disease
DX: I25.10 Atherosclerotic heart disease of native coronary artery without angina pectoris (principal); I11.0 Hypertensive heart disease with heart failure; I50.43 Acute on chronic combined systolic (congestive) and diastolic (congestive) heart failure; E83.40 Disorders of magnesium metabolism, unspecified; D64.9 Anemia, unspecified; R70.0 Elevated erythrocyte sedimentation rate; E11.9 Type 2 diabetes mellitus without complications; I48.2 Chronic atrial fibrillation; I25.2 Old myocardial infarction; K21.9 Gastro-esophageal reflux disease without esophagitis; M19.90 Unspecified osteoarthritis, unspecified site; E78.00 Pure hypercholesterolemia, unspecified; E78.5 Hyperlipidemia, unspecified; E66.01 Morbid (severe) obesity due to excess calories; Z68.35 Body mass index [BMI] 35.0-35.9, adult; Z79.01 Long term (current) use of anticoagulants; Z79.82 Long term (current) use of aspirin; Z79.4 Long term (current) use of insulin; Z95.810 Presence of automatic (implantable) cardiac defibrillator
CPT/HCPCS: 36415; 80048; 83735; 85025; 85652; 96365; 96366; G0463; J1250

== ENCOUNTER → 2018-04-28 | Outpatient (CLI) | payer MEDICARE, MEDICAID ==
[~2018-04-28] VITALS: Ht 30.5 cm; Wt 0.5 kg
[2018-04-28] VITALS (9 sets, daily range): BP systolic 109–131; BP diastolic 55–63
[~2018-04-28] MED LIST changes: +AMLO5TAB13 PO; -AMLO5TAB2 PO; +CYANOCOBALAMIN (B-12) 1000 MCG/1 ML VIAL IM ONE; +CYANOCOBALAMIN (B-12) 1000 MCG/1 ML VIAL ONE; +SPIR25TA8 PO; -SPIR25TA89 PO
[2018-04-28 12:25] LABS: Basophils # (auto) 0 uL; Basophils % (auto) 0.9 % (0.0-2.0); Eosinophils # (auto) 0.1 uL; Eosinophils % (auto) 2.7 % (0.0-7.0); Hematocrit 25.9 % (41.0-53.0); Hemoglobin 8.5 g/dL (13.5-17.5); Lymphocytes # (auto) 1.1 uL; Lymphocytes % (auto) 21.8 % (10.0-50.0); Mean Corpuscular Hgb Conc. 32.7 g/dL (32.0-36.0); Mean Corpuscular Volume 82.4 fL (80.0-100.0); Monocytes # (auto) 0.3 uL; Monocytes % (auto) 5.4 % (0.0-12.0); Neutrophils # (auto) 3.4 uL; Neutrophils % (auto) 69.2 % (37.0-80.0); Nucleated Red Blood Cells % 0.1 %; Platelet Count (auto) 175 10^3/uL (140-450); Red Blood Cells 3.14 10^6/uL (4.5-5.90); Red Cell Distribution Width 18.3 % (11.8-14.3); White Blood Cell 4.9 10^3/uL (4.4-10.8)
[2018-04-28 12:45] LABS: BUN/Creatinine Ratio 23.1; Calcium 8.9 mg/dL (8.5-10.1); Magnesium 1.8 mg/dL (1.6-2.6); Potassium 3.7 mmol/L (3.5-5.1)
== END | disposition home or self-care (01) ==
LOC: CHF HDHVI 10:00
PROVIDERS: ATTEND Internal Medicine Cardiovascular Disease
DX: I13.0 Hypertensive heart and chronic kidney disease with heart failure and stage 1 through stage 4 chronic kidney disease, or unspecified chronic kidney disease (principal); E11.22 Type 2 diabetes mellitus with diabetic chronic kidney disease; N18.3 Chronic kidney disease, stage 3 (moderate); I50.43 Acute on chronic combined systolic (congestive) and diastolic (congestive) heart failure; E83.40 Disorders of magnesium metabolism, unspecified; D50.0 Iron deficiency anemia secondary to blood loss (chronic); K21.9 Gastro-esophageal reflux disease without esophagitis; E66.9 Obesity, unspecified; I25.2 Old myocardial infarction; I25.10 Atherosclerotic heart disease of native coronary artery without angina pectoris; I48.2 Chronic atrial fibrillation; Z68.35 Body mass index [BMI] 35.0-35.9, adult; Z79.82 Long term (current) use of aspirin; Z79.4 Long term (current) use of insulin; Z95.810 Presence of automatic (implantable) cardiac defibrillator; Z87.891 Personal history of nicotine dependence; Z79.899 Other long term (current) drug therapy
CPT/HCPCS: 36415; 80048; 83735; 83880; 85025; 96365; 96366; 96372; G0463; J1250; J3420

== ENCOUNTER 2018-05-05 15:32 | Inpatient (IN) | payer MEDICARE, MEDICAID ==
[~2018-05-05] VITALS: Ht 157.5 cm; Wt 118.4 kg
[~2018-05-05 15:32] MED LIST changes: -AMLO5TAB13 PO; +AMLO5TAB2 PO; -ASPI-318 PO; -COLCPOW2 PO; -CYANOCOBALAMIN (B-12) 1000 MCG/1 ML VIAL IM ONE; -CYANOCOBALAMIN (B-12) 1000 MCG/1 ML VIAL ONE; -DOBUTamine 1000MCG/ML 250 ML IV ONE; -FURO40TA4 PO; -SPIR25TA8 PO; -WARF7.5T20 PO
[2018-05-05] MEDS ORDERED: ASPirin 81 mg TAB PO ONE (15:45)
[2018-05-05 16:19] LABS: Basophils # (auto) 0 uL; Basophils % (auto) 0.9 % (0.0-2.0); Eosinophils # (auto) 0.1 uL; Eosinophils % (auto) 1.5 % (0.0-7.0); Hematocrit 26.7 % (41.0-53.0); Hemoglobin 8.7 g/dL (13.5-17.5); Lymphocytes # (auto) 0.5 uL; Lymphocytes % (auto) 10.1 % (10.0-50.0); Mean Corpuscular Hemoglobin 27.4 pg (28.0-32.0); Mean Corpuscular Hgb Conc. 32.4 g/dL (32.0-36.0); Mean Corpuscular Volume 84.4 fL (80.0-100.0); Monocytes # (auto) 0.2 uL; Monocytes % (auto) 4.9 % (0.0-12.0); Neutrophils # (auto) 4.2 uL; Neutrophils % (auto) 82.6 % (37.0-80.0); Nucleated Red Blood Cells % 0.1 %; Platelet Count (auto) 194 10^3/uL (140-450); Red Blood Cells 3.16 10^6/uL (4.5-5.90)
[2018-05-05 16:23] LABS: Red Cell Distribution Width 20.3 % (11.8-14.3)
[2018-05-05 16:30] LABS: Albumin 3.3 g/dL (3.4-5.0); BUN/Creatinine Ratio 14.5; Calcium 8.5 mg/dL (8.5-10.1); Magnesium 1.9 mg/dL (1.6-2.6)
[2018-05-05 16:35] LABS: Bilirubin, Total 1.3 mg/dL (0.2-1.0)
[2018-05-05 16:50] LABS: INR 3.7 (0.9-1.15); Partial Thromboplastin Time 40.8 sec (23.78-33.04); Prothrombin Time 36.8 sec (9.27-12.13)
[2018-05-05] MEDS ORDERED: METOPROLOL SUCCINATE XL 50 MG TAB PO SCH (22:00)
[2018-05-05] MEDS ORDERED: NITROGLYCERIN 0.4 MG SL TAB SL PRN (22:15)
[2018-05-05] MEDS ORDERED: ONDANSETRON HCL 4 MG/2 ML VIAL IV PRN (22:15)
[2018-05-05] MEDS ORDERED: DEXTROSE (50%) 50ML SYRG IV PRN (22:15)
[2018-05-05] MEDS ORDERED: MORPHINE SULF INJ 2 MG/ML SYRINGE 1ML IV PRN (22:15)
[2018-05-05] MEDS ORDERED: ACETAMINOPHEN 325 MG TAB PO PRN (22:15)
[2018-05-05] MEDS: PRAVASTATIN SODIUM 20 MG TAB PO SCH (22:26)
[2018-05-06] VITALS (10 sets, daily range): BP systolic 101–132; BP diastolic 54–82
[2018-05-06] MEDS: InsuLIN REG 1unit/0.01ml Soln (100units/ml) SC SCH ×4 (00:10→18:00)
[2018-05-06] MEDS: ACCU-CHEK COMFORT CURVE STRIP VI SCH ×4 (00:10→18:31)
[2018-05-06] MEDS ORDERED: SPIR25TA89 PO (02:03)
[2018-05-06] MEDS ORDERED: FURO40TA4 PO (02:03)
[2018-05-06] MEDS ORDERED: ASPI-318 PO (02:03)
[2018-05-06] MEDS ORDERED: COLCPOW2 PO (02:03)
[2018-05-06] MEDS ORDERED: WARF7.5T20 PO (02:03)
[2018-05-06 06:57] LABS: Basophils # (auto) 0 uL; Eosinophils # (auto) 0.1 uL; Hematocrit 25.4 % (41.0-53.0); Lymphocytes # (auto) 0.6 uL; Monocytes # (auto) 0.2 uL; Neutrophils # (auto) 3.5 uL; Nucleated Red Blood Cells % 0.1 %; White Blood Cell 4.5 10^3/uL (4.4-10.8)
[2018-05-06 07:00] LABS: Basophils % (auto) 0.8 % (0.0-2.0); Eosinophils % (auto) 2.5 % (0.0-7.0); Hemoglobin 8.3 g/dL (13.5-17.5); Lymphocytes % (auto) 13.1 % (10.0-50.0); Mean Corpuscular Hemoglobin 27.7 pg (28.0-32.0); Mean Corpuscular Hgb Conc. 32.8 g/dL (32.0-36.0); Mean Corpuscular Volume 84.4 fL (80.0-100.0); Monocytes % (auto) 5.5 % (0.0-12.0); Neutrophils % (auto) 78.1 % (37.0-80.0); Platelet Count (auto) 179 10^3/uL (140-450); Red Blood Cells 3.01 10^6/uL (4.5-5.90); Red Cell Distribution Width 19.8 % (11.8-14.3)
[2018-05-06 07:09] LABS: INR 3.62 (0.9-1.15); Partial Thromboplastin Time 39.9 sec (23.78-33.04)
[2018-05-06 07:29] LABS: Albumin 3.3 g/dL (3.4-5.0); BUN/Creatinine Ratio 16.8; Bilirubin, Total 1.5 mg/dL (0.2-1.0); Calcium 8.8 mg/dL (8.5-10.1); Potassium 3.5 mmol/L (3.5-5.1); Total Protein 6.7 g/dL (6.4-8.2)
[2018-05-06] MEDS: PANTOPRAZOLE 40 MG TAB PO SCH (09:48)
[2018-05-06] MEDS: DIGOXIN 0.25 MG TAB PO SCH (09:48)
[2018-05-06] MEDS ORDERED: HCTZ 25 MG TAB PO SCH (10:00)
[2018-05-06] MEDS ORDERED: amLODIPine BESYLATE 5 MG TAB PO SCH (10:00)
[2018-05-06] MEDS ORDERED: ASPirin 81 mg TAB PO SCH (10:00)
[2018-05-06] MEDS ORDERED: SODIUM CHLORIDE 0.9 % NEB SOLN 3ML NEB ONE (12:38)
[2018-05-06] MEDS: ALBUTEROL SULF 2.5 MG/0.5ML(0.5%) NEB SOLN NEB PRN ×2 (13:56→20:02)
[2018-05-06 16:26] LABS: Folate (Folic Acid) 18.62 ng/mL (5.38-24)
[2018-05-06 16:38] LABS: % Iron Saturation 13.7 % (20-55)
[2018-05-06] MEDS ORDERED: DIGOXIN (250MCG/ML) 2 ML AMPULE ONE (19:27)
[2018-05-06] MEDS ORDERED: METOPROLOL TARTRATE 25 MG TAB PO ONE (19:30)
[2018-05-06] MEDS ORDERED: DIGOXIN (250MCG/ML) 2 ML AMPULE IV ONE (19:30)
[2018-05-06] MEDS ORDERED: MECLIZINE HCL 25 MG TAB PO ONE (21:15)
[2018-05-06] MEDS: HYDROcodone-ACET 5/325MG TAB PO PRN (21:46)
[2018-05-06] MEDS: PRAVASTATIN SODIUM 20 MG TAB PO SCH (21:46)
[2018-05-06] MEDS: TEMAZEPAM 15 MG CAP PO PRN (21:47)
[2018-05-06] MEDS ORDERED: METOPROLOL SUCCINATE XL 50 MG TAB PO SCH (22:00)
[2018-05-06] MEDS ORDERED: LORazepam 0.5 MG TAB PO ONE (23:00)
[2018-05-07] VITALS (19 sets, daily range): BP systolic 84–126; BP diastolic 52–70
[2018-05-07] MEDS: ACCU-CHEK COMFORT CURVE STRIP VI SCH ×5 (00:11→22:15)
[2018-05-07] MEDS: InsuLIN REG 1unit/0.01ml Soln (100units/ml) SC SCH ×5 (00:12→22:15)
[2018-05-07 07:01] LABS: INR 3.2 (0.9-1.15); Partial Thromboplastin Time 36.8 sec (23.78-33.04); Prothrombin Time 32.1 sec (9.27-12.13)
[2018-05-07 07:12] LABS: Albumin 3.7 g/dL (3.4-5.0); BUN/Creatinine Ratio 14.1; Calcium 9.2 mg/dL (8.5-10.1); Potassium 4.1 mmol/L (3.5-5.1); Total Protein 7.6 g/dL (6.4-8.2)
[2018-05-07] MEDS ORDERED: SODIUM CHLORIDE 0.9% 1,000 ML IV SCH (09:00)
[2018-05-07] MEDS: DIGOXIN 0.25 MG TAB PO SCH (09:30)
[2018-05-07] MEDS: PANTOPRAZOLE 40 MG TAB PO SCH (09:31)
[2018-05-07] MEDS: LORazepam 0.5 MG TAB PO PRN ×2 (09:31→22:08)
[2018-05-07] MEDS ORDERED: SODIUM CHLORIDE 0.9% 1,000 ML IV ONE (10:00)
[2018-05-07] MEDS ORDERED: ASPirin 81 mg TAB PO SCH (10:00)
[2018-05-07] MEDS ORDERED: FUROSEMIDE 40 MG/4 ML VIAL IV ONE (10:00)
[2018-05-07] MEDS: METOPROLOL TARTRATE 25 MG TAB PO SCH ×2 (14:38→22:15)
[2018-05-07 19:41] LABS: Hemoglobin 10.7 g/dL (13.5-17.5)
[2018-05-07] MEDS ORDERED: METOPROLOL SUCCINATE XL 50 MG TAB PO SCH (22:00)
[2018-05-07] MEDS: PRAVASTATIN SODIUM 20 MG TAB PO SCH (22:15)
[2018-05-08 00:04] VITALS: BP 112/62
[2018-05-08 05:55] VITALS: BP 135/77
[2018-05-08] MEDS: ACCU-CHEK COMFORT CURVE STRIP VI SCH ×4 (06:02→23:36)
[2018-05-08] MEDS: InsuLIN REG 1unit/0.01ml Soln (100units/ml) SC SCH ×4 (06:02→23:36)
[2018-05-08 06:38] LABS: Partial Thromboplastin Time 32.1 sec (23.78-33.04); Prothrombin Time 20.6 sec (9.27-12.13)
[2018-05-08 06:45] LABS: Basophils # (auto) 0.1 uL; Basophils % (auto) 0.8 % (0.0-2.0); Eosinophils # (auto) 0.1 uL; Eosinophils % (auto) 1.5 % (0.0-7.0); Hematocrit 31.5 % (41.0-53.0); Hemoglobin 10.1 g/dL (13.5-17.5); Lymphocytes # (auto) 0.9 uL; Lymphocytes % (auto) 12.4 % (10.0-50.0); Mean Corpuscular Hemoglobin 28.2 pg (28.0-32.0); Mean Corpuscular Hgb Conc. 32.1 g/dL (32.0-36.0); Mean Corpuscular Volume 87.7 fL (80.0-100.0); Monocytes # (auto) 0.4 uL; Monocytes % (auto) 5.3 % (0.0-12.0); Neutrophils # (auto) 5.7 uL; Nucleated Red Blood Cells % 0.1 %; Platelet Count (auto) 168 10^3/uL (140-450); Red Blood Cells 3.59 10^6/uL (4.5-5.90); White Blood Cell 7.1 10^3/uL (4.4-10.8)
[2018-05-08 06:46] LABS: Albumin 3.4 g/dL (3.4-5.0); BUN/Creatinine Ratio 21.2
[2018-05-08 06:49] LABS: Bilirubin, Total 3.1 mg/dL (0.2-1.0)
[2018-05-08 07:02] LABS: Red Cell Distribution Width 20.1 % (11.8-14.3)
[2018-05-08 08:00] VITALS: BP 113/67
[2018-05-08] MEDS: METOPROLOL TARTRATE 25 MG TAB PO SCH ×2 (09:38→22:48)
[2018-05-08] MEDS: DIGOXIN 0.25 MG TAB PO SCH (09:38)
[2018-05-08] MEDS: PANTOPRAZOLE 40 MG TAB PO SCH (09:38)
[2018-05-08] MEDS ORDERED: FUROSEMIDE 40 MG/4 ML VIAL IV ONE (10:45)
[2018-05-08 13:13] VITALS: BP 101/61
[2018-05-08] MEDS ORDERED: WARFARIN SODIUM 5 MG TAB PO ONE (17:00)
[2018-05-08 17:26] VITALS: BP 120/79
[2018-05-08] MEDS: PRAVASTATIN SODIUM 20 MG TAB PO SCH (22:48)
[2018-05-08] MEDS: HYDROcodone-ACET 5/325MG TAB PO PRN (23:36)
[2018-05-09] VITALS (7 sets, daily range): BP systolic 120–132; BP diastolic 74–80
[2018-05-09] MEDS: InsuLIN REG 1unit/0.01ml Soln (100units/ml) SC SCH ×3 (06:00→17:49)
[2018-05-09] MEDS: ACCU-CHEK COMFORT CURVE STRIP VI SCH ×3 (06:32→17:49)
[2018-05-09 07:59] LABS: Basophils # (auto) 0.1 uL; Eosinophils # (auto) 0.2 uL; Eosinophils % (auto) 3.2 % (0.0-7.0); Hematocrit 30.3 % (41.0-53.0); Hemoglobin 9.9 g/dL (13.5-17.5); Mean Corpuscular Hemoglobin 27.8 pg (28.0-32.0); Mean Corpuscular Hgb Conc. 32.6 g/dL (32.0-36.0); Mean Corpuscular Volume 85.5 fL (80.0-100.0); Monocytes # (auto) 0.2 uL; Neutrophils # (auto) 3.6 uL; Neutrophils % (auto) 71.8 % (37.0-80.0); Nucleated Red Blood Cells % 0.1 %; Platelet Count (auto) 149 10^3/uL (140-450); Red Blood Cells 3.55 10^6/uL (4.5-5.90); Red Cell Distribution Width 19.9 % (11.8-14.3)
[2018-05-09 08:06] LABS: INR 1.55 (0.9-1.15); Partial Thromboplastin Time 30.5 sec (23.78-33.04); Prothrombin Time 16.2 sec (9.27-12.13)
[2018-05-09 08:19] LABS: Albumin 3.3 g/dL (3.4-5.0); BUN/Creatinine Ratio 23.1; Bilirubin, Total 2.8 mg/dL (0.2-1.0); Calcium 8.9 mg/dL (8.5-10.1); Potassium 3.7 mmol/L (3.5-5.1); Total Protein 6.8 g/dL (6.4-8.2)
[2018-05-09] MEDS: FUROSEMIDE 40 MG/4 ML VIAL IV SCH (10:31)
[2018-05-09] MEDS: DIGOXIN 0.25 MG TAB PO SCH (10:31)
[2018-05-09] MEDS: PANTOPRAZOLE 40 MG TAB PO SCH (10:32)
[2018-05-09] MEDS: METOPROLOL TARTRATE 25 MG TAB PO SCH ×2 (10:32→21:37)
[2018-05-09] MEDS ORDERED: WARFARIN SODIUM 5 MG TAB PO ONE (17:00)
[2018-05-09] MEDS: PRAVASTATIN SODIUM 20 MG TAB PO SCH (21:36)
[2018-05-10] MEDS: ACCU-CHEK COMFORT CURVE STRIP VI SCH ×4 (00:38→17:54)
[2018-05-10] MEDS: InsuLIN REG 1unit/0.01ml Soln (100units/ml) SC SCH ×4 (00:43→17:55)
[2018-05-10 04:16] LABS: Basophils # (auto) 0 uL; Basophils % (auto) 0.7 % (0.0-2.0); Eosinophils # (auto) 0.2 uL; Eosinophils % (auto) 3.4 % (0.0-7.0); Hematocrit 29.5 % (41.0-53.0); Hemoglobin 9.7 g/dL (13.5-17.5); Lymphocytes # (auto) 0.6 uL; Lymphocytes % (auto) 12.9 % (10.0-50.0); Mean Corpuscular Hemoglobin 27.9 pg (28.0-32.0); Mean Corpuscular Hgb Conc. 32.7 g/dL (32.0-36.0); Mean Corpuscular Volume 85.2 fL (80.0-100.0); Monocytes # (auto) 0.3 uL; Monocytes % (auto) 5.9 % (0.0-12.0); Neutrophils # (auto) 3.9 uL; Neutrophils % (auto) 77.1 % (37.0-80.0); Nucleated Red Blood Cells % 0.1 %; Platelet Count (auto) 148 10^3/uL (140-450); Red Blood Cells 3.46 10^6/uL (4.5-5.90); Red Cell Distribution Width 19.9 % (11.8-14.3)
[2018-05-10 04:34] LABS: INR 1.51 (0.9-1.15); Partial Thromboplastin Time 29.7 sec (23.78-33.04); Prothrombin Time 15.8 sec (9.27-12.13)
[2018-05-10 04:36] LABS: Albumin 3.2 g/dL (3.4-5.0); Calcium 8.6 mg/dL (8.5-10.1); Potassium 3.7 mmol/L (3.5-5.1)
[2018-05-10 04:39] LABS: BUN/Creatinine Ratio 26.3
[2018-05-10 04:55] LABS: Bilirubin, Total 1.7 mg/dL (0.2-1.0); Total Protein 6.8 g/dL (6.4-8.2)
[2018-05-10 05:00] VITALS: BP 136/69
[2018-05-10] MEDS: HYDROcodone-ACET 5/325MG TAB PO PRN (07:57)
[2018-05-10 08:00] VITALS: BP 127/74
[2018-05-10 08:57] VITALS: BP 127/74
[2018-05-10] MEDS: FUROSEMIDE 40 MG/4 ML VIAL IV SCH (09:50)
[2018-05-10] MEDS: PANTOPRAZOLE 40 MG TAB PO SCH (09:51)
[2018-05-10] MEDS: DIGOXIN 0.25 MG TAB PO SCH (09:51)
[2018-05-10] MEDS: METOPROLOL TARTRATE 25 MG TAB PO SCH (09:51)
[2018-05-10 12:35] VITALS: BP 117/70
[2018-05-10] MEDS ORDERED: CLOPIDOGREL BISULFATE 75 MG TAB PO ONE (15:30)
[2018-05-10] MEDS ORDERED: CLOPIDOGREL BISULFATE 75 MG TAB PO SCH (16:00)
[2018-05-10 16:40] VITALS: BP 125/92
[2018-05-10] MEDS ORDERED: WARFARIN SODIUM 2.5 MG TAB PO ONE (17:00)
[2018-05-10] MEDS ORDERED: SPIRONOLACTONE 25 MG TAB PO SCH (18:00)
[2018-05-10] MEDS ORDERED: LORazepam 0.5 MG TAB PO PRN (20:00)
[2018-05-10] MEDS ORDERED: FUROSEMIDE 40 MG/4 ML VIAL IV ONE (21:30)
[2018-05-10 21:44] VITALS: BP 124/61
[2018-05-10] MEDS: PRAVASTATIN SODIUM 20 MG TAB PO SCH (21:45)
[2018-05-10] MEDS ORDERED: METOPROLOL TARTRATE 50 MG TAB PO SCH (22:00)
[2018-05-10] MEDS ORDERED: FUROSEMIDE 20 MG/2 ML VIAL IV ONE (23:00)
[2018-05-10] MEDS ORDERED: diphenhdrAMINE HCL 50 MG/1 ML VL IM ONE (23:00)
[2018-05-10] MEDS ORDERED: diphenhdrAMINE HCL 50 MG/1 ML VL IV ONE (23:15)
[2018-05-11] MEDS: InsuLIN REG 1unit/0.01ml Soln (100units/ml) SC SCH (00:10)
[2018-05-11] MEDS: ACCU-CHEK COMFORT CURVE STRIP VI SCH (00:10)
[2018-05-11] MEDS: ALBUTEROL SULF 2.5 MG/0.5ML(0.5%) NEB SOLN NEB PRN (00:38)
[2018-05-11] MEDS: TEMAZEPAM 15 MG CAP PO PRN (00:44)
[2018-05-11] MEDS ORDERED: SUCCINYLCHOLINE CHLORIDE 20 MG/ML 10ML VIAL IV ONE (04:25)
[2018-05-11] MEDS ORDERED: ETOMIDATE (2MG/ML) 20ML VIAL IV ONE (04:25)
[2018-05-11] MEDS ORDERED: EPINEPHrine HCL 250 ML IV ONE (04:56)
[2018-05-11] MEDS ORDERED: NOREPINEPHRINE 8 MG/250ML KIT 250 ML IV ONE (05:12)
[2018-05-11] MEDS ORDERED: HYDROcodone-ACET 5/325MG TAB PO PRN (09:15)
[2018-05-11] MEDS ORDERED: POTASSIUM CHL 20 Meq TABLET PO ONE (09:15)
[2018-05-11] MEDS ORDERED: MORPHINE SULF INJ 2 MG/ML SYRINGE 1ML IV PRN (09:15)
[2018-05-11] MEDS ORDERED: BUMETANIDE (0.25MG/ML) 4 ML VIAL IV ONE (09:15)
[2018-05-11] MEDS ORDERED: EPINEPHrine HCL 1 MG/10 ML SYRG IV ONE (09:52)
[2018-05-11] MEDS ORDERED: SODIUM BICARBONATE 8.4% INJ 50ML SYRINGE IV ONE (09:52)
[2018-05-11] MEDS ORDERED: ATROPINE SULF 1 MG/10ml SYR IV ONE (09:52)
[2018-05-11] MEDS ORDERED: FUROSEMIDE 40 MG TAB PO SCH (10:00)
[2018-05-11] MEDS ORDERED: DIGOXIN 0.125 MG TAB PO SCH (10:00)
== END 2018-05-11 09:53 | disposition expired | DRG 291 ==
LOC: ER 15:32 → EDBD 15:32 → TELE 15:33 → TELE-WESTW 23:23
PROVIDERS: ADMIT Nurse Practitioner; ATTEND Internal Medicine
PROC: 30233L1 Transfusion of Nonautologous Fresh Plasma into Peripheral Vein, Percutaneous Approach (ICD-10-PCS; principal; 2018-05-07)
PROC: 30233N1 Transfusion of Nonautologous Red Blood Cells into Peripheral Vein, Percutaneous Approach (ICD-10-PCS; 2018-05-07)
PROC: 30233K1 Transfusion of Nonautologous Frozen Plasma into Peripheral Vein, Percutaneous Approach (ICD-10-PCS; 2018-05-07)
DX: I13.0 Hypertensive heart and chronic kidney disease with heart failure and stage 1 through stage 4 chronic kidney disease, or unspecified chronic kidney disease (principal); N17.0 Acute kidney failure with tubular necrosis; I50.43 Acute on chronic combined systolic (congestive) and diastolic (congestive) heart failure; D68.69 Other thrombophilia; I48.92 Unspecified atrial flutter; I47.2 Ventricular tachycardia; I42.0 Dilated cardiomyopathy; N18.3 Chronic kidney disease, stage 3 (moderate); D50.0 Iron deficiency anemia secondary to blood loss (chronic); Z95.5 Presence of coronary angioplasty implant and graft; I48.2 Chronic atrial fibrillation; I44.7 Left bundle-branch block, unspecified; D63.8 Anemia in other chronic diseases classified elsewhere; E11.22 Type 2 diabetes mellitus with diabetic chronic kidney disease; E78.5 Hyperlipidemia, unspecified; I08.0 Rheumatic disorders of both mitral and aortic valves; I25.10 Atherosclerotic heart disease of native coronary artery without angina pectoris; I25.5 Ischemic cardiomyopathy; T45.515A Adverse effect of anticoagulants, initial encounter; R04.0 Epistaxis; Z79.01 Long term (current) use of anticoagulants; Z82.49 Family history of ischemic heart disease and other diseases of the circulatory system; Z95.810 Presence of automatic (implantable) cardiac defibrillator; Z88.8 Allergy status to other drugs, medicaments and biological substances; Z88.0 Allergy status to penicillin
CPT/HCPCS: 36415; 36600; 71045; 80053; 82270; 82565; 82607; 82746; 82805; 82962; 83540; 83550; 83735; 83880; 84132; 84443; 84484; 84520; 85014; 85018; 85025; 85610; 85730; 86850; 86900; 86901; 86920; 93005; 94640; 94660; 94761; 96365; 96366; 96372; 97110; 97116; 97163; 97530; G0463; J0171; J0330; J1815